=== PATIENT | female | born 1955 | race Caucasian/White ===

== ENCOUNTER → 2018-04-20 | Outpatient (CLI) | payer OTHER | LOC: M ONCR 09:52 | DX: C50.911 Malignant neoplasm of unspecified site of right female breast (principal) ==

== ENCOUNTER 2018-05-05 09:54 | Outpatient (RCR) | payer OTHER | END 2018-05-28 | LOC: M ONCR 09:54 | DX: C50.811 Malignant neoplasm of overlapping sites of right female breast (principal) | CPT/HCPCS: 77300 ==

== ENCOUNTER 2018-06-01 08:59 | Outpatient (RCR) | payer OTHER | END 2018-06-27 | LOC: M ONCR 08:59 | DX: C50.811 Malignant neoplasm of overlapping sites of right female breast (principal); Z98.890 Other specified postprocedural states | CPT/HCPCS: 77300 ==

== ENCOUNTER → 2018-08-04 | Outpatient (CLI) | payer OTHER | LOC: M ONCR 14:49 | DX: C50.811 Malignant neoplasm of overlapping sites of right female breast (principal) ==

== ENCOUNTER → 2018-08-04 | Outpatient (CLI) | payer OTHER | LOC: M WHC 13:50 | DX: C50.811 Malignant neoplasm of overlapping sites of right female breast (principal) | CPT/HCPCS: 77080 ==

== ENCOUNTER → 2020-11-28 | Outpatient (CLI) | payer BC ==
[~2020-11-28] MED LIST: AMIT25TA17 PO; ASPI81CH33 PO; ASPI81TA90 PO; BUTA1CAP PO; CALC1TAB26 PO; CHOL1250 PO; CIPR500T89 PO; FENO134C PO; FENOFIBRATE PO; FISHCAP PO; FLUO10CA8 PO; FLUO20CA20 PO; FLUO20CA8 PO; GABA-1171 PO; HYDR-3713 PO; HYDR12.55 PO; KETO10TAB OR; LETR2.5T2 PO; MELOPOW PO; OMEP1CAP73 PO; OMEPPOW18 PO; OXYC1TAB23 PO; PROM25TA12 PO; RAMI1CAP26 PO; RAMIPRIL; SILV40CR EXT; TRAM50TA2 PO; VITA-199 PO; VITA2000 PO; VITAMIN D PO
--- NOTE | 2020-11-29 09:09 | RADONC ---
Radiation Oncology Hx/FUP Radiation Oncology Hx/FUP Date of Service: Nov 28, 2020 Pt Identifier Itzel Peña is a 64 year old female seen for a followup visit today at the department of radiation oncology for a history of right breast cancer pT1bN0(sn)M0 ER/CO+ HER2- Grade 1. She is s/p lumpectomy and SLNB on 04/06/[address] Castaneda, and adjuvant RT to the right whole breast 40 Gy in 15 fractions completed 06/08/18, boost was omitted due to grade 2 skin reaction along the right lateral breast surgical scar at the end of treatment. She has been on letrozole since completion of RT initially under Dr. Bloom, she has not been seen since January [address] Bloom leaving the practice. She is here to re- establish oncologic and survivorship follow up. Diagnosis/Treatment History Oncologic History As above Survivorship: Breast table: Test Due Next Last result Notes TSH, T4* 6m post-tx, then q1y NA Carotid US* q10 y post-tx N/A Smoking cessation Assess annually if applicable N/A Screening CT chest q1y if eligible per USPSTF N/A Mammograms Min q1y, if breast conservation 02/2021 Negative [facility] 02/2020 CBC,CMP, Lipids q1y 05/2021 If not done elsewhere DEXA q2y if on AI 2021 WNL [facility] 07/2020 Interval History She reports she is feeling well overall. She has no skin concerns, notes decreased sweat production in the IMF on the right. She has some numbness/dysesthesia in the right axilla. She has minimal discomfort in the right breast and no swelling. She had mammograms in February 2020 at [facility] which were negative. She is due again in February of this year. She has no complaints related to letrozole. Her appetite is good and her weight is stable. Current Therapy Letrozole daily from 2018-present Stage Right breast cancer IDC pT1bN0(sn)M0 ER/CO+ HER2- Grade 1 stage IA Social History: 17 pack year former smoker quit 1975 Does not drink Allergies / Meds Allergies: Coded Allergies: amlodipine (Verified Allergy, Severe, Tongue and Throat Swelling, 12/30/18) metoprolol (Verified Allergy, Severe, Tongue and Throat Swelling, 12/30/18) prochlorperazine (Verified Allergy, Severe, Anaphylaxis, 12/30/18) propoxyphene (Verified Allergy, Severe, Anaphylaxis on Darvocet, 12/30/18) Zrtcuzn-Kti-Bxd Reductase Inhibitor (Verified Adverse Reaction, Intermediate, MUSCLE CRAMPS, LETHARGY, CONFUSION, 12/30/18) Home Meds Active Scripts Cholecalciferol (Vitamin D3) (Weekly-D) 1,250 Mcg Capsule, 1250 MCG PO QWEEK, #12 CAP 3 Refills Prov:RIVERA WELDON MD 01/25/20 Letrozole (Letrozole) 2.5 Mg Tab, 2.5 MG PO DAILY, #90 TAB 2 Refills Prov:AMALIA TIRADO MD 12/05/19 Reported Medications Calcium Carbonate/Vitamin D3 (Calcium 600-Vit D3 800 Tablet) 1 Tab Tab, 1 TAB PO BID, TAB 07/28/18 Hydrochlorothiazide (Hydrochlorothiazide) 12.5 Mg Tab, 12.5 MG PO DAILY for 30 Days, #30 TAB 07/28/18 Fluoxetine Hcl (Fluoxetine HCl) 20 Mg Cap, 20 MG PO BID for 30 Days, #60 CAP 07/28/18 Butalb/Acetaminophen/Caffeine (Gjfmhj-Kknhdjgv-Jzhs 50-300-40) 1 Cap Cap, 1 CAP PO PRN PRN for PAIN, CAP 03/25/18 Amitriptyline HCl (Amitriptyline HCl) 25 Mg Tab, 25 MG PO QHS, TAB 03/25/18 Omeprazole (Omeprazole) 20 Mg Cap, 40 MG PO DAILY, CAP 03/25/18 Ramipril (Ramipril) 10 Mg Cap, 10 MG PO DAILY, CAP 03/25/18 Fenofibrate,Micronized (Fenofibrate) 134 Mg Cap, 134 MG PO DAILY, CAP 03/25/18 Review of Systems Review of Systems Constitutional: Reports: Normal appetite; Denies: Chills, Fever, Fatigue Eyes: Denies: Pain HEENT: Denies: Head Aches Skin: Denies: Rash Breast: Denies: New Breast Lumps / Masses, Nipple Retraction, Nipple Discharge, Breast Skin Changes, Breast Pain or Tenderness Pulmonary: Denies: Dyspnea, Cough Cardiovascular: Denies: Chest Pain, Palpitations Gastrointestinal: Denies: Nausea, Abdominal Pain Hematologic: Denies: Bruising, Bleeding Excessively Endocrine: Denies: Cold Intolerance Musculoskeletal: Denies: Neck pain, Back pain Neurological: Denies: Weakness, Numbness Psych: Reports: Mood Normal Physical Examination Vital Signs Ht 64" Wt 200 lbs BMI 34 T 98 P 79 RR 18 BP 108.68 O2 97% Pain 0 Fatigue 0 General Exam: Positive: Alert, Cooperative; Negative: No Acute Distress Eye Exam: Positive: PERRLA, EOMI ENT EXAM: Positive: Atraumatic Neck Exam: Positive: Supple Chest Exam: Positive: Clear to auscultation, Normal air movement Heart Exam: Positive: Rate Normal, Regular Rhythm Breast Exam: Positive: Symmetric Bilaterally, Skin Changes; Negative: Lumps or Masses, Nipple Retraction, Nipple Discharge (Lateral right breast scar, right axilliary scar. Normal appearing skin BL without pigementation changes or telangiectasias) Abdomen Exam: Positive: Soft Extremity Exam: Negative: Edema Skin Exam: Positive: Nl turgor and temperature Neuro Exam: Positive: Normal Gait, Normal Speech, Cranial Nerves 3-12 NL Psych Exam: Positive: Mental status NL Diagnostic and Laboratory Diagnostic Review Radiologic images, relevant labs and pathology reports were personally reviewed and discussed with Ms. Peña. Assessment and Plan Impression Assessment Ms. Peña is a 64 year old female with a history of right breast cancer pT1bN0(sn)M0 ER/CO+ HER2- Grade 1. She is s/p lumpectomy and SLNB on 04/06/[address] Castaneda, and adjuvant RT to the right whole breast 40 Gy in 15 fractions completed 06/08/18, boost was omitted due to grade 2 skin reaction along the right lateral breast surgical scar at the end of treatment. She has been on letrozole since completion of RT initially under Dr. Bloom, she has not been seen since January [address] Bloom leaving the practice. She is here to re- establish oncologic and survivorship follow up. She is doing well with no evidence of disease in the breasts on exam today. She has no serious late sequelae of treatment evident. She is up to date with her mammograms, next due in February 2021. She continues on letrozole and should re- establish with a medical oncology provider here to manage this. I will refer her to Dr. Hampton who can see her non-urgently in the coming months. Her last DEXA in July 2020 was WNL, so no urgent intervention is needed with regard to bone density. I will see her again in 6 months, and then attempt to alternate follow up with Dr. Hampton such we each see her once per year. When she returns to see me in the Fall I will order screening blood work (CBC,CMP Lipids) if not done by her PCP. Performance Status ECOG 0 Plan Follow up in [address] Hampton to re-establish medical oncology care (former Dr. Bloom patient) Mammography as scheduled per [facility] Ms. Peña was encouraged to call with questions or concerns in the interim period. Billing Statement Total time of [25] minutes was spent preparing for the visit [4], obtaining HPI [4], examining the patient [3], reviewing diagnostic tests [3], discussing management options [4], coordinating care [1], and writing this note [6]. CASSANDRA GANDHI MD Nov 29, 2020 09:09
== END ==
LOC: M ONCR 14:43
PROVIDERS: ATTEND General Practice
DX: C50.811 Malignant neoplasm of overlapping sites of right female breast (principal); Z87.891 Personal history of nicotine dependence; Z88.8 Allergy status to other drugs, medicaments and biological substances; Z79.899 Other long term (current) drug therapy

== ENCOUNTER → 2021-07-30 | Outpatient (CLI) | payer BC ==
[~2021-07-30] MED LIST changes: +FLUO60TA; +METH-1165 PO; +cholecaciferol
--- NOTE | 2021-07-30 16:50 | RADONC ---
Radiation Oncology Hx/FUP Radiation Oncology Hx/FUP Date of Service: Jul 30, 2021 Pt Identifier Itzel Peña is a 65 year old female seen for a followup visit today at the department of radiation oncology for a history of right breast cancer pT1bN0(sn)M0 ER/MN+ HER2- Grade 1. She is s/p lumpectomy and SLNB on 04/06/[address] Castaneda, and adjuvant RT to the right whole breast 40 Gy in 15 fractions completed 06/08/18, boost was omitted due to grade 2 skin reaction along the right lateral breast surgical scar at the end of treatment. She has been on letrozole since completion of RT in 2018, she was briefly lost to follow up when Dr. Bloom left the medical oncology practice, she has since re-es tablished with Dr. Sanford. She is seen today for survivorship and surveillance care. Diagnosis/Treatment History Oncologic History As above Survivorship: Test Due Next Last result Notes TSH, T4* 6m post-tx, then q1y NA Carotid US* q10 y post-tx N/A Smoking cessation Assess annually if applicable N/A Screening CT chest q1y if eligible per USPSTF N/A Mammograms Min q1y, if breast conservation 03/2022 Negative [facility] 03/2021 CBC,CMP, Lipids q1y 06/2022 WNL per medical oncology DEXA q2y if on AI 06/2022 WNL [facility] 07/2020 Interval History Itzel feels well. Appetite and weight are stable. She is bringing her Dad (Walter Dumont) to see me next week. Her only complaint is occasional rash under the right breast. Dry and itchy. She has occasional joint pains and achiness she attributes to the letrozole. She has no hot flashes or other endocrine complaints. Current Therapy Letrozole daily from 2018-present Stage Right breast cancer IDC pT1bN0(sn)M0 ER/MN+ HER2- Grade 1 stage IA Social History: 17 pack year former smoker quit 1975 Does not drink Allergies / Meds Allergies: Coded Allergies: amlodipine (Verified Allergy, Severe, Tongue and Throat Swelling, 12/30/18) metoprolol (Verified Allergy, Severe, Tongue and Throat Swelling, 12/30/18) prochlorperazine (Verified Allergy, Severe, Anaphylaxis, 12/30/18) propoxyphene (Verified Allergy, Severe, Anaphylaxis on Darvocet, 12/30/18) Eeapdlo-Ggm-Yrz Reductase Inhibitor (Verified Adverse Reaction, Intermediate, MUSCLE CRAMPS, LETHARGY, CONFUSION, 12/30/18) Home Meds Active Scripts Cholecalciferol (Vitamin D3) (Weekly-D) 1,250 Mcg Capsule, 1250 MCG PO 1XWK for 90 Days, #13 CAP 3 Refills Prov:ChanoLei camposite ANP 07/12/21 [cholecaciferol] No Conflict Check Prov:Lei Lopezite ANP 07/12/21 Letrozole (Letrozole) 2.5 Mg Tab, 2.5 MG PO DAILY, #90 TAB 2 Refills Prov:LATRICE SANFORD [facility] 01/03/21 Reported Medications Fluoxetine HCl (Fluoxetine HCl) 60 Mg Tablet 07/10/21 Methocarbamol (Methocarbamol) 750 Mg Tablet, 1 TAB PO TIDP 01/03/21 Calcium Carbonate/Vitamin D3 (Calcium 600-Vit D3 800 Tablet) 1 Tab Tab, 1 TAB PO BID, TAB 07/28/18 Hydrochlorothiazide (Hydrochlorothiazide) 12.5 Mg Tab, 12.5 MG PO DAILY for 30 Days, #30 TAB 07/28/18 Fluoxetine Hcl (Fluoxetine HCl) 20 Mg Cap, 20 MG PO BID for 30 Days, #60 CAP 07/28/18 Butalb/Acetaminophen/Caffeine (Adqxjy-Khlstzcb-Hncz 50-300-40) 1 Cap Cap, 1 CAP PO PRN PRN for PAIN, CAP 03/25/18 Amitriptyline HCl (Amitriptyline HCl) 25 Mg Tab, 25 MG PO QHS, TAB 03/25/18 Omeprazole (Omeprazole) 20 Mg Cap, 40 MG PO DAILY, CAP 03/25/18 Ramipril (Ramipril) 10 Mg Cap, 10 MG PO DAILY, CAP 03/25/18 Fenofibrate,Micronized (Fenofibrate) 134 Mg Cap, 134 MG PO DAILY, CAP 03/25/18 Review of Systems Review of Systems Constitutional: Denies: Fatigue, Weight Loss Eyes: Denies: Pain HEENT: Denies: Head Aches Skin: Reports: Rash Breast: Denies: New Breast Lumps / Masses, Nipple Discharge Pulmonary: Denies: Dyspnea Cardiovascular: Denies: Chest Pain Gastrointestinal: Denies: Abdominal Pain Endocrine: Denies: Cold Intolerance Musculoskeletal: Reports: Joint pain; Denies: Neck pain, Back pain Neurological: Denies: Weakness, Numbness Psych: Reports: Mood Normal Physical Examination Vital Signs Ht 64" Wt 200 BMI 34 T 98 P 79 RR 18 BP 108/68 O2 97% Pain 0 Fatigue 0 General Exam: Alert, Cooperative, No Acute Distress Eye Exam: PERRLA, EOMI ENT EXAM: Atraumatic Neck Exam: Supple, Lymphadenopathy Chest Exam: Clear to auscultation Heart Exam: Rate Normal Breast Exam: Symmetric Bilaterally (Ptotic, right lateral breast surgical site without nodularity. No rash observed in the IMF); Negative: Lumps or Masses, Nipple Retraction, Nipple Discharge, Skin Changes Extremity Exam: Negative: Edema Skin Exam: Nl turgor and temperature Neuro Exam: Normal Gait, Normal Speech, Cranial Nerves 3-12 NL Psych Exam: Mental status NL Diagnostic and Laboratory Diagnostic Review Radiologic images, relevant labs and pathology reports were personally reviewed and discussed with Ms. Peña. Assessment and Plan Impression Assessment Ms. Peña is a 65 year old female with a history of right breast cancer pT1bN0(sn)M0 ER/MN+ HER2- Grade 1. She is s/p lumpectomy and SLNB on 04/06/[address] Castaneda, and adjuvant RT to the right whole breast 40 Gy in 15 fractions completed 06/08/18, boost was omitted due to grade 2 skin reaction along the right lateral breast surgical scar at the end of treatment. She has been on letrozole since completion of RT in 2018, she was briefly lost to follow up when Dr. Bloom left the medical oncology practice, she has since re- established with Dr. Sanford. She is seen today for survivorship and surveillance care. She is doing well and has appropriate mammographic and medical oncology follow up. She is up to date on her survivorship care items. 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 To treat this she can apply emollients BID, and if there is active rash she can add 1% hydrocortisone BID. I will see her again in 1 year. Performance Status ECOG 0 Plan Follow up in 1 year Emollient/hydrocortisone to right breast PRN Ms. Peña was encouraged to call with questions or concerns in the interim period. Billing Statement Total time of [23] minutes was spent preparing for the visit [1], obtaining HPI [4], examining the patient [4], reviewing diagnostic tests [2], discussing management options [5], coordinating care [1], and writing this note [6]. CASSANDRA GANDHI MD Jul 30, 2021 16:50
== END ==
LOC: M ONCR 15:16
PROVIDERS: ATTEND General Practice
DX: C50.811 Malignant neoplasm of overlapping sites of right female breast (principal); Z92.3 Personal history of irradiation; Z88.8 Allergy status to other drugs, medicaments and biological substances; R21 Rash and other nonspecific skin eruption

== ENCOUNTER → 2022-05-15 | Outpatient (REF) | payer BC ==
[~2022-05-15] MED LIST changes: -FENO134C PO; +FENO134C16 PO; +FLUO-96 PO; -FLUO20CA20 PO
== END ==
LOC: M LAB REF 17:01
PROVIDERS: ATTEND Nurse Practitioner Family
DX: R30.0 Dysuria (principal)

== ENCOUNTER → 2022-08-14 | Outpatient (CLI) | payer BC ==
[~2022-08-14] MED LIST changes: -FENO134C16 PO; +FENO134C20 PO; +TOPI25TA10
== END ==
LOC: M WHC 14:30
PROVIDERS: ATTEND Nurse Practitioner
DX: M85.89 Other specified disorders of bone density and structure, multiple sites (principal)

== ENCOUNTER → 2023-10-16 | Outpatient (CLI) | payer BC ==
[~2023-10-16] MED LIST changes: +ACET300T48; -AMIT25TA17 PO; +AMIT25TA19 PO; +IBUP80TA; +TIZA2TA; +TOPI-21
== END ==
LOC: M RAD 07:35
PROVIDERS: ATTEND Internal Medicine Nephrology
DX: I70.1 Atherosclerosis of renal artery (principal)

== ENCOUNTER → 2023-11-26 | Outpatient (CLI) | payer BC ==
[2023-11-26 19:02] LABS: BASO % 0.6 % (0.0-1.0); EOS # 0.1 10^3/uL (0.0-0.5); HEMATOCRIT 34.7 % (36.0-47.0); HEMOGLOBIN 10.8 g/dl (12.0-15.5); LYMPH # 2.5 10^3/uL (1.5-5.0); LYMPH % 35.1 % (24.0-44.0); MEAN CORPUSCULAR HEMOGLOBIN 27.8 pg (27.0-33.0); MEAN CORPUSCULAR HGB CONC 31.1 g/dl (32.0-36.5); MEAN CORPUSCULAR VOLUME 89.4 fl (80.0-96.0); MONO # 0.7 10^3/uL (0.0-0.8); MONO % 9.2 % (2.0-8.0); NEUTROPHILS # 3.8 10^3/uL (1.5-8.5); PLATELET COUNT, AUTOMATED 324 10^3/uL (150-450); RED BLOOD COUNT 3.88 10^6/uL (4.00-5.40); URIC ACID 5.7 MG/DL (3.1-7.8)
[2023-11-26 19:03] LABS: C REACTIVE PROTEIN QUANTITATIV 3.1 MG/DL (<1.0)
[2023-11-26 19:05] LABS: ALBUMIN 3.6 G/DL (3.2-5.2); BILIRUBIN,TOTAL 0.2 MG/DL (0.3-1.2); CALCIUM LEVEL 9.2 MG/DL (8.3-10.6); CREATININE FOR GFR 1.17 MG/DL (0.55-1.30); GLOMERULAR FILTRATION RATE 49.4 (>45); POTASSIUM SERUM 4.3 MMOL/L (3.5-5.1); TOTAL PROTEIN 6.8 G/DL (5.7-8.2)
[2023-11-26 19:25] LABS: ERYTHROCYTE SEDIMENTATION RATE 63 mm/hr (0-30)
== END ==
LOC: M PLALAB 14:57
PROVIDERS: ATTEND Nurse Practitioner Family
DX: M25.561 Pain in right knee (principal)

== ENCOUNTER 2024-02-29 09:47 | Emergency (ER) | payer BC ==
[~2024-02-29] VITALS: Ht 162.6 cm; Wt 80.9 kg
[~2024-02-29 09:47] MED LIST changes: -ACET300T48; +ACET300T48 PO; +ACET300T52 PO; -FLUO60TA; +FLUO60TA PO; +OMEP40CA5 PO; +RAMI10CA64 PO; -RAMI1CAP26 PO; -TIZA2TA; +TIZA2TA PO; -TOPI-21; +TOPI-21 PO
[2024-02-29] MEDS ORDERED: NAPR-885 PO (13:51)
[2024-02-29] MEDS ORDERED: PRED20TA PO (14:02)
[2024-02-29 14:23] VITALS: BP 185/86; TEMP 97.1; O2SAT 100
== END 2024-02-29 14:25 | disposition home or self-care (01) ==
LOC: M ED 09:47
DX: M71.21 Synovial cyst of popliteal space [Baker], right knee (principal); I10 Essential (primary) hypertension; E78.5 Hyperlipidemia, unspecified; Z88.8 Allergy status to other drugs, medicaments and biological substances; Z79.1 Long term (current) use of non-steroidal anti-inflammatories (NSAID); Z79.52 Long term (current) use of systemic steroids; Z79.899 Other long term (current) drug therapy

== ENCOUNTER 2024-09-14 10:50 | Day surgery (SDC) | payer BC ==
[~2024-09-14] VITALS: Ht 162.6 cm; Wt 79.7 kg
[~2024-09-14 10:50] MED LIST changes: +HYDR-161 PO; +NAPR-885 PO; +PRED20TA PO
[2024-09-14] MEDS ORDERED: propofoL 200 MG/20 ML VIAL As Ordered ONE (12:51)
[2024-09-14 13:01] VITALS: TEMP 97.6
[2024-09-14 13:26] VITALS: BP 139/70; O2SAT 98
== END 2024-09-14 13:30 | disposition home or self-care (01) ==
LOC: M OPP 10:50
PROVIDERS: ATTEND Surgery
DX: Z12.11 Encounter for screening for malignant neoplasm of colon (principal); Z85.3 Personal history of malignant neoplasm of breast; K64.1 Second degree hemorrhoids; I10 Essential (primary) hypertension; E78.5 Hyperlipidemia, unspecified; K21.9 Gastro-esophageal reflux disease without esophagitis; M19.90 Unspecified osteoarthritis, unspecified site; F41.9 Anxiety disorder, unspecified; F32.A Depression, unspecified; G43.909 Migraine, unspecified, not intractable, without status migrainosus; Z92.3 Personal history of irradiation; Z88.6 Allergy status to analgesic agent; Z88.8 Allergy status to other drugs, medicaments and biological substances; Z79.899 Other long term (current) drug therapy